=== PATIENT | male | born 1995 | race Caucasian/White ===

== ENCOUNTER 2018-01-24 19:48 | Emergency (ER) | payer SELFPAY ==
[~2018-01-24] VITALS: Ht 182.9 cm; Wt 71.0 kg
[2018-01-24 22:01] VITALS: BP 111/59
== END 2018-01-24 23:36 | disposition home or self-care (01) ==
LOC: ER 19:48
DX: S60.222A Contusion of left hand, initial encounter (principal); W18.39XA Other fall on same level, initial encounter; Y93.89 Activity, other specified; Y92.89 Other specified places as the place of occurrence of the external cause; Y99.8 Other external cause status
CPT/HCPCS: 73130; 99284